=== PATIENT | male | born 1960 | race Caucasian/White ===

== ENCOUNTER 2017-01-23 10:40 | Emergency (ER) | payer SELFPAY | END 2017-01-23 12:35 | disposition home or self-care (01) | LOC: D.ER 10:40 | DX: S49.91XA Unspecified injury of right shoulder and upper arm, initial encounter (principal); W19.XXXA Unspecified fall, initial encounter; Y93.89 Activity, other specified; Y92.89 Other specified places as the place of occurrence of the external cause; S43.402A Unspecified sprain of left shoulder joint, initial encounter; I10 Essential (primary) hypertension; F17.200 Nicotine dependence, unspecified, uncomplicated ==

== ENCOUNTER 2019-05-23 12:08 | Inpatient (IN) | payer BC ==
[~2019-05-23] VITALS: Ht 190.5 cm; Wt 103.6 kg
[2019-05-23] MEDS ORDERED: OMEPRAZOLE20 M1 (12:28)
[2019-05-23] MEDS ORDERED: ACAMPROSATE CA333 MG (12:29)
[2019-05-23] MEDS ORDERED: BUMEX2 MG (12:29)
[2019-05-23] MEDS ORDERED: ACAMPROSATE CA333 MG PO (12:29)
[2019-05-23] MEDS ORDERED: POTASSIUM CHLO10 ME1 (12:30)
[2019-05-23] MEDS ORDERED: ULTRAM50 MG (12:30)
[2019-05-23 12:59] LABS: BASOPHILS 0.3 % (0-2); EOSINOPHILS 2.2 % (0-7); HEMATOCRIT 20.1 % (42.0-54.0); HEMOGLOBIN 7.6 g/dL (13.5-17.5); IMMATURE GRANULOCYTES 0.7 % (0-5); LYMPHOCYTES 14.8 % (15-50); MCH 37.8 pg (26.0-34.0); MCHC 37.8 g/dL (31.0-37.0); MEAN PLATELET VOLUME 10.6 fL (7.4-10.4); MONOCYTES 14.5 % (2-11); NEUTROPHILS 67.5 % (40-80); PLATELET COUNT 85 10x3/uL (130-400); RBC 2.01 10x6/uL (4.20-6.10); RDW 15.2 % (11.5-14.5); WBC 9.9 10x3/uL (4.8-10.8)
[2019-05-23 13:10] LABS: APTT 45.1 SECONDS (22.8-39.4); INR 2.29 (0.85-1.17); PROTIME 24.5 SECONDS (11.6-15.0)
[2019-05-23 13:14] LABS: BILIRUBIN - TOTAL 8.8 mg/dL (0.2-1.3); CALCIUM 8.8 mg/dL (8.5-10.1); CARBON DIOXIDE 24.2 mmol/L (21.0-32.0); CREATININE - SERUM 1.6 mg/dL (0.6-1.3); POTASSIUM - SERUM 4.2 mmol/L (3.5-5.1); PROTEIN - SERUM 7.1 g/dL (6.4-8.2)
[2019-05-23 14:58] LABS: PLATELET ESTIMATE DECREASED
[2019-05-23 15:36] LABS: % SATURATION 88 % (15-55); IRON 151 ug/dl (35-150); TOTAL IRON BIND CAPACITY 171 ug/dl (260-445)
[2019-05-23 15:40] LABS: UNSAT IRON BIND CAPACITY 20 ug/dl (150-375)
[2019-05-23 17:11] VITALS: BP 120/75; BMI 26.5
--- NOTE | 2019-05-23 18:44 | MORECARE ---
CASE MANAGEMENT DISCHARGE SUMMARY PATIENT: BERNADETTE MERRITT UNIT: [id number] ADM DATE: 05/23/19 AGE: 58 : 60 SEX: M ROOM/BED: D.2306 AUTHOR: JULIO CÉSAR MENESES PHYSICIAN: REFERRING PHYSICIAN: HIRA LOMAX MD DATE OF SERVICE: 05/23/19 Discharge Plan Patient Name: BERNADETTE MERRITT [facility] [facility] 1960 Planned Disposition: Home Anticipated Discharge Date: 05/26/19 Discharge Date: Expected LOS: 3 Initial Reviewer: [email or web address] Initial Review Date: 05/23/2019 Generated: 05/23/19 7:44 pm DCPIA - Discharge Planning Initial Assessment Updated by [email or web address]: Jyoti Martinez on 05/23/19 6:42 pm * Is the patient Alert and Oriented? Yes * PCP Dr. Stewart * Pharmacy [facility] in [place] * Preadmission Environment Home with Family * ADLs Independent * Equipment Cane Rolling Walker Wheelchair * Other Equipment blood pressure cuff * List name and contact numbers for known caregivers / representatives who currently or will assist patient after discharge: Kimberly Merritt - mother - [phone] or [phone] * Verbal permission to speak to the caregivers and representatives has been obtained from the patient. Yes * Community resources currently utilized Home Health * Please name any agencies selected above. [facility] signed for resumption in ER. * Additional services required to return to the preadmission environment? No * Can the patient safely return to the preadmission environment? Yes * Has this patient been hospitalized within the prior 30 days at any hospital? Yes Patient Name: BERNADETTE MERRITT Page [id number] at 1844 All edits/amendments must be made on the electronic document DICTATION DATE: 05/23/191843 SQL ANALYST: RADHA 05/23/191843 RPT#: [id number] DC DATE: STATUS: ADM IN [facility] [address] [place] [address] END OF REPORT
--- NOTE | 2019-05-23 18:51 | MORECARE ---
CASE MANAGEMENT DISCHARGE SUMMARY PATIENT: BERNADETTE MERRITT UNIT: [id number] ADM DATE: 05/23/19 AGE: 58 : 60 SEX: M ROOM/BED: D.2306 AUTHOR: ZAIRADOC PHYSICIAN: REFERRING PHYSICIAN: HIRA LOMAX MD DATE OF SERVICE: 05/23/19 Discharge Plan Patient Name: BERNADETTE MERRITT Facility: [facility]:[place] : 1960 Planned Disposition: Home Anticipated Discharge Date: 05/26/19 Discharge Date: Expected LOS: 3 Initial Reviewer: [email or web address] Initial Review Date: 05/23/2019 Generated: 05/23/19 7:51 pm DCP- Discharge Planning Updated by [email or web address]: Jyoti Martinez on 05/23/19 5:[address] Patient Name: BERNADETTE MERRITT Admission Status: ER Accout number: [id number] Admission Date: 05-23-2019 : 1960 Admission Diagnosis: Attending: HIRA LOMAX Current LOS: 1 Anticipated DC Date: 05-26-2019 Planned Disposition: Home Primary Insurance: [employer] Discharge Planning Comments: DC PLAN: Return home with his mother. Has [facility]. ANTICIPATED DC NEEDS: Resumption home health. CM met with patient, his mother and brother to complete initial dc planning assessment. CM educated patient on the CM role and verbal consent given by patient to complete assessment. CM verified patient's address, phone number, and emergency contact phone numbers. Patient lives at home with his mother and has recently been dc from [facility]. Patient has began having multiple falls and fell today. Patient currently has [facility] and wishes to resume at discharge. JEFF form signed by patient's mother for resumption of [employer]. Signed form placed in chart and signed form given to patient. At discharge patient plans to return home with home health and feels this is a safe discharge. Patient denied further known discharge needs at this time. . Patient reports his mom or brother will transport him home at time of discharge.CM will continue to follow and will assist as needed with dc plans/needs. Rehab Therapy Manager: Jyoti Martinez RN, [facility] DCPIA - Discharge Planning Initial Assessment Updated by [email or web address]: Jyoti Martinez on 05/23/19 6:42 pm * Is the patient Alert and Oriented? Yes * PCP Dr. Stewart * Pharmacy [facility] in [place] * Preadmission Environment Home with Family * ADLs Independent * Equipment Cane Rolling Walker Wheelchair * Other Equipment blood pressure cuff * List name and contact numbers for known caregivers / representatives who currently or will assist patient after discharge: Kimberly Merritt - mother - [phone] or [phone] * Verbal permission to speak to the caregivers and representatives has been obtained from the patient. Yes * Community resources currently utilized Home Health * Please name any agencies selected above. [facility] signed for resumption in ER. * Additional services required to return to the preadmission environment? No * Can the patient safely return to the preadmission environment? Yes * Has this patient been hospitalized within the prior 30 days at any hospital? Yes Last DP export: 05/23/19 5:44 p Patient Name: BERNADETTE MERRITT Page [id number] at 1851 All edits/amendments must be made on the electronic document DICTATION DATE: 05/23/191850 WEIGH AND CHARGE WORKER: RADHA 05/23/191850 RPT#: [id number] DC DATE: STATUS: ADM IN [facility] [address] [place] [address] END OF REPORT
[2019-05-23 19:00] VITALS: BP 122/75
[2019-05-23 21:00] VITALS: BP 112/63
[2019-05-23 21:21] LABS: UDS - AMPHET NEGATIVE QUAL (NEGATIVE); UDS - BARB NEGATIVE QUAL (NEGATIVE); UDS - BENZO NEGATIVE QUAL (NEGATIVE); UDS - COCAINE NEGATIVE QUAL (NEGATIVE); UDS - OPIATE NEGATIVE QUAL (NEGATIVE); UDS - PCP NEGATIVE QUAL (NEGATIVE); UDS - THC NEGATIVE QUAL (NEGATIVE)
[2019-05-23 21:23] LABS: APPEARANCE CLEAR (CLEAR); BILIRUBIN NEGATIVE (NEGATIVE); COLOR YELLOW (YELLOW); GLUCOSE NEGATIVE (NEGATIVE); KETONE NEGATIVE (NEGATIVE); NITRITE NEGATIVE (NEGATIVE); PROTEIN NEGATIVE (NEGATIVE); UROBILINOGEN NORMAL (NORMAL)
[2019-05-23 21:24] LABS: BACTERIA FEW /hpf (NONE SEEN); RED CELLS - URINE 0-5 /hpf (0-5); WHITE CELLS - URINE OCC /hpf (0-5)
[2019-05-23 22:00] VITALS: BP 115/59
[2019-05-23 23:00] VITALS: BP 105/67
[2019-05-24] VITALS (22 sets, daily range): BP systolic 104–135; BP diastolic 48–85; Ht 190.5 cm; Wt 103.6 kg
[2019-05-24 04:33] LABS: BASOPHILS 0 % (0-2); EOSINOPHILS 0.2 % (0-7); HEMOGLOBIN 8.2 g/dL (13.5-17.5); IMMATURE GRANULOCYTES 0.9 % (0-5); LYMPHOCYTES 10.3 % (15-50); MCH 34.7 pg (26.0-34.0); MCHC 37.3 g/dL (31.0-37.0); MONOCYTES 6.2 % (2-11); NEUTROPHILS 82.4 % (40-80); RBC 2.36 10x6/uL (4.20-6.10); RDW 19.1 % (11.5-14.5)
[2019-05-24 04:34] LABS: MCV 93.2 fL (80.0-100.0); PLATELET COUNT 62 10x3/uL (130-400); WBC 6.5 10x3/uL (4.8-10.8)
[2019-05-24 04:44] LABS: APTT 41.5 SECONDS (22.8-39.4); INR 2.23 (0.85-1.17)
[2019-05-24 04:49] LABS: ALBUMIN 1.7 g/dL (3.4-5.0); ANION GAP 12.7 mmol/L (8-16); BILIRUBIN - TOTAL 8.3 mg/dL (0.2-1.3); CALCIUM 8.5 mg/dL (8.5-10.1); CREATININE - SERUM 1.4 mg/dL (0.6-1.3); POTASSIUM - SERUM 4.7 mmol/L (3.5-5.1); PROTEIN - SERUM 6.2 g/dL (6.4-8.2)
[2019-05-25] VITALS (24 sets, daily range): BP systolic 106–131; BP diastolic 51–83
[2019-05-25 03:39] LABS: BASOPHILS 0 % (0-2); EOSINOPHILS 0 % (0-7); IMMATURE GRANULOCYTES 0.6 % (0-5); LYMPHOCYTES 6.9 % (15-50); MCH 35.7 pg (26.0-34.0); MCHC 37.6 g/dL (31.0-37.0); MEAN PLATELET VOLUME 9.8 fL (7.4-10.4); NEUTROPHILS 84.5 % (40-80); PLATELET COUNT 62 10x3/uL (130-400); RBC 2.07 10x6/uL (4.20-6.10); RDW 20.8 % (11.5-14.5)
[2019-05-25 03:53] LABS: ANION GAP 12.3 mmol/L (8-16); BILIRUBIN - TOTAL 7.95 mg/dL (0.2-1.3); CALCIUM 8.8 mg/dL (8.5-10.1); CARBON DIOXIDE 24.9 mmol/L (21.0-32.0); CREATININE - SERUM 1.5 mg/dL (0.6-1.3); INR 1.77 (0.85-1.17); POTASSIUM - SERUM 4.2 mmol/L (3.5-5.1); PROTEIN - SERUM 6.5 g/dL (6.4-8.2)
[2019-05-25 03:54] LABS: WBC 11.7 10x3/uL (4.8-10.8)
[2019-05-25 03:55] LABS: HEMATOCRIT 19.7 % (42.0-54.0); MCV 95.2 fL (80.0-100.0)
[2019-05-25 03:56] LABS: HEMOGLOBIN 7.4 g/dL (13.5-17.5)
[2019-05-26] VITALS (24 sets, daily range): BP systolic 84–135; BP diastolic 55–81
[2019-05-26 04:05] LABS: BASOPHILS 0 % (0-2); EOSINOPHILS 0 % (0-7); HEMATOCRIT 23.3 % (42.0-54.0); HEMOGLOBIN 8.7 g/dL (13.5-17.5); IMMATURE GRANULOCYTES 0.7 % (0-5); LYMPHOCYTES 5.7 % (15-50); MCH 33.7 pg (26.0-34.0); MCHC 37.3 g/dL (31.0-37.0); MEAN PLATELET VOLUME 9.4 fL (7.4-10.4); MONOCYTES 7.8 % (2-11); NEUTROPHILS 85.8 % (40-80); PLATELET COUNT 53 10x3/uL (130-400); RDW 22.3 % (11.5-14.5); WBC 9.8 10x3/uL (4.8-10.8)
[2019-05-26 04:07] LABS: APTT 34.9 SECONDS (22.8-39.4); INR 2.02 (0.85-1.17); PROTIME 22.2 SECONDS (11.6-15.0)
[2019-05-26 04:18] LABS: ALBUMIN 1.8 g/dL (3.4-5.0); ANION GAP 9.7 mmol/L (8-16); BILIRUBIN - TOTAL 8.73 mg/dL (0.2-1.3); CALCIUM 8.8 mg/dL (8.5-10.1); CARBON DIOXIDE 25.6 mmol/L (21.0-32.0); CREATININE - SERUM 1.2 mg/dL (0.6-1.3); POTASSIUM - SERUM 4.3 mmol/L (3.5-5.1); PROTEIN - SERUM 5.8 g/dL (6.4-8.2)
[2019-05-26 04:25] LABS: MCV 90.3 fL (80.0-100.0); RBC 2.58 10x6/uL (4.20-6.10)
--- NOTE | 2019-05-26 14:30 | EC ---
PATIENT:BERNADETTE MERRITT DATE OF SERVICE: 05/23/19 SEX: M MEDICAL RECORD: [id number] DATE OF : 60 LOCATION:[facility] AGE OF PATIENT: 58 ADMISSION DATE: 05/23/19 REFERRING PHYSICIAN: INTERPRETING PHYSICIAN: RALPH NERI MD ECHOCARDIOGRAM REPORT ECHO CHARGES 4 ECHO COMPLETE Date: 05/24/19 CLINICAL DIAGNOSIS: CHF ECHOCARDIOGRAPHIC MEASUREMENTS (adult normal given) AC root (d.<3.7cm) 3.8 cm LV Septum d (<1.2 cm> 1.2 cm Valve Excursion 2.0 cm LV Septum (systole) 1.5 cm Left Atria (s.<4.0cm> 2.3 cm LVPW d(<1.2cm) 1.2 cm RV (d.<2.3cm) 3.5 cm LVPW (sytole) 1.3 cm LV diastole(<5.6CM) 6.1 cm MV E-F(>70mm/sec) cm LV systole 4.5 cm LVOT Diameter 2.0 cm MV exc.(>10mm) cm Est.ejection fraction (50-75%) % DOPPLER: LVIT cm/sec A 66 cm/sec E 79 cm/sec LA cm/sec RVSP 20.8 mmHg LVOT 124 cm/sec AOP1/2T m/s Asc. Ao 204 cm/sec RVOT 95 cm/sec RA cm/sec PA 104 cm/sec AV Gradient Peak 16.7 mmHg AV Mean 8.3 mmHg AV Area 2.1 cm MV Gradient Peak 4.2 mmHg MV Mean 2.9 mmHg MV Area cm COMMENTS: Field Research Associate: Graciela [facility] Manager Corporate Communications: 3 Dr. Estrada TAPE# PACS Pericardial Effusion N DATE OF SERVICE: Adequate 2-D echo, color-flow and spectral Doppler, and M-mode. No LVH. LV internal dimensions are normal. Wall motion is normal. EF is greater than or equal to 55%. Aortic valve sclerosis without stenosis by Doppler interrogation. Left atrium is normal. Mitral valve shows no prolapse. Trace MR. Right-sided chambers are grossly normal. Trace TR. TRANSINT:[id number] Voice Confirmation ID: [id number] DOCUMENT ID: [id number] ECHOCARDIOGRAM REPORT [id number] BERNADETTE MERRITT RALPH NERI MD at 1430 CC: [id number] DICTATION DATE: 05/25/19 1047 SUPERVISOR CELL ROOM: 05/25/19 1421 ADM IN [place] [id number] [place] [id number]
[2019-05-26 21:12] LABS: BASOPHILS 0.3 % (0-2); EOSINOPHILS 0 % (0-7); HEMATOCRIT 26.8 % (42.0-54.0); HEMOGLOBIN 9.8 g/dL (13.5-17.5); IMMATURE GRANULOCYTES 1.6 % (0-5); LYMPHOCYTES 12.5 % (15-50); MCH 33.8 pg (26.0-34.0); MCHC 36.6 g/dL (31.0-37.0); MEAN PLATELET VOLUME 9.2 fL (7.4-10.4); MONOCYTES 12.9 % (2-11); NEUTROPHILS 72.7 % (40-80); PLATELET COUNT 57 10x3/uL (130-400); RDW 22.4 % (11.5-14.5)
[2019-05-26 21:13] LABS: MCV 92.4 fL (80.0-100.0); WBC 3.1 10x3/uL (4.8-10.8)
[2019-05-26 21:23] LABS: ANION GAP 11.2 mmol/L (8-16); CARBON DIOXIDE 24.8 mmol/L (21.0-32.0)
[2019-05-26 21:26] LABS: INR 2.16 (0.85-1.17); PROTIME 23.4 SECONDS (11.6-15.0)
[2019-05-26 21:32] LABS: CREATININE - SERUM 1.6 mg/dL (0.6-1.3)
[2019-05-27] VITALS (17 sets, daily range): BP systolic 85–127; BP diastolic 43–82
[2019-05-27 03:50] LABS: APPEARANCE CLEAR (CLEAR); BILIRUBIN NEGATIVE (NEGATIVE); COLOR DK YELLOW (YELLOW); GLUCOSE NEGATIVE (NEGATIVE); KETONE NEGATIVE (NEGATIVE); NITRITE NEGATIVE (NEGATIVE); PROTEIN NEGATIVE (NEGATIVE); SPECIFIC GRAVITY 1.015 (1.005-1.020); UROBILINOGEN NORMAL (NORMAL)
[2019-05-27 03:51] LABS: BACTERIA FEW /hpf (NONE SEEN); EPITHELIAL CELLS 0-5 /hpf (0-5); RED CELLS - URINE 0-5 /hpf (0-5); WHITE CELLS - URINE 0-5 /hpf (0-5)
[2019-05-27 05:00] LABS: APTT 33.4 SECONDS (22.8-39.4); INR 2.26 (0.85-1.17); PROTIME 24.3 SECONDS (11.6-15.0)
[2019-05-27 05:11] LABS: ALBUMIN 1.9 g/dL (3.4-5.0); ANION GAP 11.7 mmol/L (8-16); BILIRUBIN - TOTAL 10.22 mg/dL (0.2-1.3); CARBON DIOXIDE 24.7 mmol/L (21.0-32.0); CREATININE - SERUM 1.6 mg/dL (0.6-1.3); POTASSIUM - SERUM 4.4 mmol/L (3.5-5.1); PROTEIN - SERUM 6.5 g/dL (6.4-8.2)
[2019-05-27 05:31] LABS: BASOPHILS 0 % (0-2); EOSINOPHILS 0 % (0-7); HEMATOCRIT 27.5 % (42.0-54.0); HEMOGLOBIN 9.9 g/dL (13.5-17.5); IMMATURE GRANULOCYTES 1.1 % (0-5); LYMPHOCYTES 5.9 % (15-50); MCH 33.4 pg (26.0-34.0); MCV 92.9 fL (80.0-100.0); MONOCYTES 5.6 % (2-11); NEUTROPHILS 87.4 % (40-80); RBC 2.96 10x6/uL (4.20-6.10); RDW 22.5 % (11.5-14.5); WBC 2.7 10x3/uL (4.8-10.8)
[2019-05-27 05:41] LABS: PLATELET COUNT 44 10x3/uL (130-400)
[2019-05-27 06:05] LABS: PLATELET ESTIMATE DECREASED
[2019-05-28 00:56] VITALS: BP 90/43
[2019-05-28 05:54] VITALS: BP 100/42
[2019-05-28 07:56] LABS: ALBUMIN 1.7 g/dL (3.4-5.0); BILIRUBIN - TOTAL 10.74 mg/dL (0.2-1.3); CALCIUM 9.2 mg/dL (8.5-10.1); POTASSIUM - SERUM 4.5 mmol/L (3.5-5.1); PROTEIN - SERUM 5.6 g/dL (6.4-8.2)
[2019-05-28 08:04] LABS: APTT 40.3 SECONDS (22.8-39.4); BASOPHILS 0 % (0-2); EOSINOPHILS 3.7 % (0-7); HEMATOCRIT 31.9 % (42.0-54.0); HEMOGLOBIN 10.8 g/dL (13.5-17.5); IMMATURE GRANULOCYTES 1.2 % (0-5); INR 4.04 (0.85-1.17); LYMPHOCYTES 14.6 % (15-50); MCH 33.4 pg (26.0-34.0); MCHC 33.9 g/dL (31.0-37.0); MEAN PLATELET VOLUME 10.4 fL (7.4-10.4); MONOCYTES 7.3 % (2-11); NEUTROPHILS 73.2 % (40-80); PROTIME 38.5 SECONDS (11.6-15.0); RBC 3.23 10x6/uL (4.20-6.10); RDW 23.7 % (11.5-14.5)
[2019-05-28 08:05] LABS: MCV 98.8 fL (80.0-100.0); WBC 0.8 10x3/uL (4.8-10.8)
[2019-05-28 08:06] LABS: PLATELET COUNT 34 10x3/uL (130-400)
[2019-05-28 08:07] LABS: ANION GAP 33.2 mmol/L (8-16); CREATININE - SERUM 2.9 mg/dL (0.6-1.3)
[2019-05-28 08:10] LABS: CARBON DIOXIDE 8.3 mmol/L (21.0-32.0)
[2019-05-28 09:45] VITALS: BP 93/40
[2019-05-28 10:30] LABS: PLATELET ESTIMATE DECREASED
[2019-05-28 10:31] LABS: CRENATED CELLS OCC
--- NOTE | 2019-05-28 15:37 | MORECARE ---
CASE MANAGEMENT DISCHARGE SUMMARY PATIENT: BERNADETTE MERRITT UNIT: [id number] ADM DATE: 05/23/19 AGE: 58 : 60 SEX: M ROOM/BED: D.2223 AUTHOR: ZAIRADOC PHYSICIAN: REFERRING PHYSICIAN: HIRA LOMAX MD DATE OF SERVICE: 05/28/19 Discharge Plan Patient Name: BERNADETTE MERRITT Facility: [facility]:[place] : 1960 Planned Disposition: Home Anticipated Discharge Date: 05/26/19 Discharge Date: 05/28/2019 Expected LOS: 3 Initial Reviewer: [email or web address] Initial Review Date: 05/23/2019 Generated: 05/28/19 4:37 pm DCP- Discharge Planning Updated by [email or web address]: Jyoti Martinez on 05/23/19 5:[address] Patient Name: BERNADETTE MERRITT Admission Status: ER Accout number: [id number] Admission Date: 05-23-2019 : 1960 Admission Diagnosis: Attending: HIRA LOMAX Current LOS: 1 Anticipated DC Date: 05-26-2019 Planned Disposition: Home Primary Insurance: [employer] Discharge Planning Comments: DC PLAN: Return home with his mother. Has [facility]. ANTICIPATED DC NEEDS: Resumption home health. CM met with patient, his mother and brother to complete initial dc planning assessment. CM educated patient on the CM role and verbal consent given by patient to complete assessment. CM verified patient's address, phone number, and emergency contact phone numbers. Patient lives at home with his mother and has recently been dc from [facility]. Patient has began having multiple falls and fell today. Patient currently has [facility] and wishes to resume at discharge. JEFF form signed by patient's mother for resumption of [employer]. Signed form placed in chart and signed form given to patient. At discharge patient plans to return home with home health and feels this is a safe discharge. Patient denied further known discharge needs at this time. . Patient reports his mom or brother will transport him home at time of discharge.CM will continue to follow and will assist as needed with dc plans/needs. Filling Mixer: Jyoti Martinez RN, [facility] DCPIA - Discharge Planning Initial Assessment Updated by [email or web address]: Jyoti Martinez on 05/23/19 6:42 pm * Is the patient Alert and Oriented? Yes * PCP Dr. Stewart * Pharmacy [facility] in [place] * Preadmission Environment Home with Family * ADLs Independent * Equipment Cane Rolling Walker Wheelchair * Other Equipment blood pressure cuff * List name and contact numbers for known caregivers / representatives who currently or will assist patient after discharge: Kimberly Merritt - mother - [phone] or [phone] * Verbal permission to speak to the caregivers and representatives has been obtained from the patient. Yes * Community resources currently utilized Home Health * Please name any agencies selected above. [facility] signed for resumption in ER. * Additional services required to return to the preadmission environment? No * Can the patient safely return to the preadmission environment? Yes * Has this patient been hospitalized within the prior 30 days at any hospital? Yes Last DP export: 05/23/19 5:51 p Patient Name: BERNADETTE MERRITT Page [id number] at 1537 All edits/amendments must be made on the electronic document DICTATION DATE: 05/28/19 153 HOME HEALTH BILLING SPECIALIST: RADHA 05/28/191536 RPT#: [id number] DC DATE:05/28/19 STATUS: DIS IN [facility] [address] [place] [address] END OF REPORT
== END 2019-05-28 14:30 | DRG 432 ==
LOC: D.ER 12:08 → D.ICU 16:00 → D.MS 05-27 18:35
PROVIDERS: Family Medicine; ADMIT Internal Medicine Nephrology; ATTEND Internal Medicine Nephrology
DX: K70.41 Alcoholic hepatic failure with coma (principal); S06.5X0A Traumatic subdural hemorrhage without loss of consciousness, initial encounter; K85.90 Acute pancreatitis without necrosis or infection, unspecified; E43 Unspecified severe protein-calorie malnutrition; R40.2314 Coma scale, best motor response, none, 24 hours or more after hospital admission; R40.2224 Coma scale, best verbal response, incomprehensible words, 24 hours or more after hospital admission; D62 Acute posthemorrhagic anemia; N17.9 Acute kidney failure, unspecified; F17.203 Nicotine dependence unspecified, with withdrawal; E44.0 Moderate protein-calorie malnutrition; E87.1 Hypo-osmolality and hyponatremia; D68.9 Coagulation defect, unspecified; S02.40FA Zygomatic fracture, left side, initial encounter for closed fracture; K70.31 Alcoholic cirrhosis of liver with ascites; Z66 Do not resuscitate; F10.10 Alcohol abuse, uncomplicated; D69.6 Thrombocytopenia, unspecified; D53.9 Nutritional anemia, unspecified; K70.30 Alcoholic cirrhosis of liver without ascites; S70.10XA Contusion of unspecified thigh, initial encounter; W19.XXXA Unspecified fall, initial encounter; R40.2134 Coma scale, eyes open, to sound, 24 hours or more after hospital admission